=== PATIENT | male | born 1990 | race Caucasian/White ===

== ENCOUNTER 2018-07-12 10:25 | Emergency (ER) | payer OTHER ==
[2018-07-12] MEDS: KETOROLAC 30 MG/ML VIAL (J1885) IV (13:29)
[2018-07-12] MEDS: METOCLOPRAMIDE INJ 10MG/2ML VIAL (J2765) IV (13:29)
[2018-07-12] MEDS: diphenhydrAMINE INJ 50MG/ML VIAL (J1200) IV (13:29)
== END 2018-07-12 14:10 | disposition home or self-care (01) ==
LOC: M ED 10:25
DX: R51 Headache (principal); R11.0 Nausea; R42 Dizziness and giddiness; H53.149 Visual discomfort, unspecified; Z87.891 Personal history of nicotine dependence
CPT/HCPCS: J1200

== ENCOUNTER → 2018-11-12 | Outpatient (CLI) | payer OTHER ==
[~2018-11-12] MED LIST: IBUP80TA PO
--- NOTE | 2018-11-12 18:54 | REP ---
RIGHT ANKLE SERIES, FOUR VIEWS: There is no evidence of an acute fracture, dislocation or intrinsic bone disease. The ankle mortise is anatomic. IMPRESSION: No fracture or dislocation. Electronically Signed by Javi Dyer MD 11/12/2018 07:47 P
--- NOTE | 2018-11-12 18:55 | REP ---
RIGHT FOOT SERIES, FOUR VIEWS: There is no evidence of an acute fracture, dislocation or intrinsic bone disease. IMPRESSION: No fracture or dislocation. Electronically Signed by Javi Dyer MD 11/12/2018 07:48 P
== END ==
LOC: M LRY 17:42
PROVIDERS: ATTEND Nurse Practitioner Family
DX: M25.571 Pain in right ankle and joints of right foot (principal)
CPT/HCPCS: 73610; 73630; G0463

== ENCOUNTER 2018-12-23 11:21 | Emergency (ER) | payer OTHER ==
[~2018-12-23] VITALS: Ht 160 cm; Wt 61.4 kg
[2018-12-23] MEDS ORDERED: NAPROXEN 250 MG TAB PO ONE (12:15)
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
[2018-12-23 13:43] VITALS: BP 118/67
== END 2018-12-23 13:45 | disposition home or self-care (01) ==
LOC: M ED 11:21
DX: S13.4XXA Sprain of ligaments of cervical spine, initial encounter (principal); S60.212A Contusion of left wrist, initial encounter; V43.52XA Car driver injured in collision with other type car in traffic accident, initial encounter; Y92.410 Unspecified street and highway as the place of occurrence of the external cause; F17.200 Nicotine dependence, unspecified, uncomplicated

== ENCOUNTER 2020-12-18 03:21 | Emergency (ER) | payer OTHER ==
[~2020-12-18] VITALS: Ht 160 cm; Wt 68.2 kg
[2020-12-18 03:58] LABS: BASO % 0.5 % (0.0-1.0); EOS # 0.1 10^3/uL (0.0-0.5); EOS % 1.8 % (0.0-3.0); HEMATOCRIT 42.3 % (42.0-52.0); HEMOGLOBIN 14.4 g/dl (13.5-17.5); LYMPH # 3.6 10^3/uL (1.5-5.0); MEAN CORPUSCULAR HEMOGLOBIN 30.8 pg (27.0-33.0); MEAN CORPUSCULAR VOLUME 90.4 fl (80.0-96.0); MONO # 0.4 10^3/uL (0.0-0.8); MONO % 5.5 % (2.0-8.0); NEUTROPHILS # 2.4 10^3/uL (1.5-8.5); PLATELET COUNT, AUTOMATED 179 10^3/uL (150-450); RED BLOOD COUNT 4.68 10^6/uL (4.30-6.10); WHITE BLOOD COUNT 6.5 10^3/uL (4.0-10.0)
[2020-12-18] MEDS ORDERED: LR 1,000 ML IV ONE (04:45)
[2020-12-18] MEDS ORDERED: METOCLOPRAMIDE INJ 10MG/2ML VIAL (J2765 PER 1) IV ONE (04:45)
[2020-12-18] MEDS ORDERED: FAMOTIDINE INJ 20MG/2ML VIAL (S0028 PER 1) IVP ONE (04:45)
[2020-12-18 04:46] LABS: ALT/SGPT 36 U/L (12-78); BILIRUBIN,DIRECT 0.1 MG/DL (0.0-0.2); BILIRUBIN,TOTAL 0.3 MG/DL (0.2-1.0); BLOOD UREA NITROGEN 12 MG/DL (7-18); CALCIUM LEVEL 8.8 MG/DL (8.5-10.1); CARBON DIOXIDE LEVEL 29 MEQ/L (21-32); CHLORIDE LEVEL 108 MEQ/L (98-107); CREATININE FOR GFR 0.91 MG/DL (0.70-1.30); GLOMERULAR FILTRATION RATE > 60.0 (>60); GLUCOSE, FASTING 102 MG/DL (70-100); LIPASE 94 U/L (73-393); POTASSIUM SERUM 4.2 MEQ/L (3.5-5.1); SODIUM LEVEL 143 MEQ/L (136-145); TOTAL PROTEIN 6.8 GM/DL (6.4-8.2)
[2020-12-18] MEDS ORDERED: PEPC1TAB5 PO (06:07)
[2020-12-18 06:30] VITALS: BP 110/61
== END 2020-12-18 06:42 | disposition home or self-care (01) ==
LOC: M ED 03:21
DX: K29.20 Alcoholic gastritis without bleeding (principal)
CPT/HCPCS: 80048; 80076; 83690; 85025; 96361; 96374; 96375; 99284; J2765

== ENCOUNTER → 2021-09-11 | Outpatient (CLI) | payer OTHER ==
[~2021-09-11] MED LIST changes: +PEPC1TAB5 PO
== END ==
LOC: M LABSMTC 10:48
PROVIDERS: ATTEND Pediatrics
DX: Z20.822 Contact with and (suspected) exposure to COVID-19 (principal)
CPT/HCPCS: C9803; U0003